=== PATIENT | female | born 1970 | race Caucasian/White ===

== ENCOUNTER 2017-12-26 06:28 | Day surgery (SDC) | payer OTHER ==
[2017-12-24 12:18] LABS: Potassium 4.4 mmol/L (3.5-5.1)
[2017-12-26] MEDS ORDERED: Ringers Lactate 1,000 ML IV ONE (06:49)
[2017-12-26] MEDS ORDERED: PROPOFOL 200 MG/20 ML VIAL IV ONE (07:03)
[2017-12-26] MEDS ORDERED: FENTANYL CITR 100 MCG/2 ML ONE (07:03)
[2017-12-26] MEDS ORDERED: MIDAZOLAM HCL 2 MG/2 ML INJ ONE (07:04)
[2017-12-26] MEDS ORDERED: LIDOCAINE 2% MPF 5 ML VIAL ONE (07:04)
[2017-12-26] MEDS ORDERED: LIDOCAINE 1% W/EPI 1:100,000 MDV 50 ML VIAL ONE (07:53)
[2017-12-26] MEDS ORDERED: NA CHLORIDE 0.9% 1,000 ML ONE (08:57)
[2017-12-26] MEDS ORDERED: IBUPROFEN 200 MG TAB PO ONE (09:39)
[2017-12-26] MEDS ORDERED: IBUPROFEN 400 MG TAB ONE (09:39)
--- NOTE | 2017-12-26 12:42 | OP ---
Date of Procedure: 12/26/2017 Surgeon: Ursula Gibson MD Marine Service Operator: None. Preoperative Diagnoses: Heavy menstrual bleeding, dysmenorrhea, possible intrauterine mass or a poss ible polyp or myoma. Postoperative Diagnoses: Dysmenorrhea, menorrhagia, and endometrial polyps. Procedures Performed: Hysteroscopy, dilation and curettage, polypectomy using Symphion resection dev ice. Anesthesia: General with LMA. Specimens: Polyps and endometrial curettings. Condition: The patient is stable. Ebl: Minimal. Findings: Polyps on the right wall of the uterus. Endometrium thickened. No myoma was seen. Description Of Procedure: After informed consent was verified, patient was taken back to the OR, luciano sirisha in a supine fashion on the operating table. After MAC was given, she was placed in a dorsal lith otomy position using Rodrick stirrups. Pelvic exam performed, uterus anteflexed, very anteflexed. No adnexal masses. Speculum placed to expose the cervix. Anterior lip grasped with 2 Allis clamps. Ce rvix dilated with a hemostat at the external os, 2 Allis clamps were readjusted to single-tooth tenac ulum on the anterior lip of the cervix. Then while I was able to visualize the cervical canal well, the cervix was dilated to about 14-Bulgarian. Then a diagnostic SlimLine hysteroscope was placed withou t any problems into the uterine cavity. Polyps visualized as described above. On the right wall, re st of the endometrial cavity appeared to be unremarkable. Tubal ostia were visualized and normal. T he scope was removed. Symphion device was then attempted to be used. However, there were problems w ith the attachment of the light source, so technically this was not possible, so I went ahead and use d the operative scope for the operating channel for the hysteroscope. Then, using normal saline for distention medium I went in, the base of the polyp was cut with the help of polypectomy scissors thro ugh this. Then, this was retrieved. The scope was removed. Endometrial curettings were performed c onsidering we were still not able to fix the Symphion device towards the end of this. However, there was not a lot of endometrium obtained, so plan to go on and use the resector. So once the Symphion light attachment was figured out, tip of the device, set the pressure at 80 mmHg and the MAP was abou t 81 mm. I went ahead and scoped the cavity after suctioning the clots and the tissue that was remai elena in there. This was aspirated into the aspiration and then using the cutter, the rest of the tis felice inside the cavity was retrieved and the posterior wall and the right lateral wall were resected i n order to get a better sample. Thorough irrigation and suction were done. There was good hemostasi s. After all the instruments were removed, instrument, needle, and sponge counts were done and were correct at the end of the case. The patient tolerated the procedure well. EBL was a 50 cc. She issac l follow up with me in 1 week for review of pathology results. No antibiotics were given to this pat ient. LISA/IOANA Voice ID: [id number] Report ID: [id number]
== END 2017-12-26 09:52 | disposition home or self-care (01) ==
LOC: OR 06:28
PROVIDERS: ATTEND Obstetrics & Gynecology
PROC: 0UDB7ZX Extraction of Endometrium, Via Natural or Artificial Opening, Diagnostic (ICD-10-PCS; 2017-12-26)
PROC: 0UB98ZX Excision of Uterus, Via Natural or Artificial Opening Endoscopic, Diagnostic (ICD-10-PCS; principal; 2017-12-26 07:30)
DX: N92.1 Excessive and frequent menstruation with irregular cycle (principal); N84.0 Polyp of corpus uteri; N94.5 Secondary dysmenorrhea; Z83.3 Family history of diabetes mellitus
CPT/HCPCS: 36415; 80048; 81025; 88305; J2250; J3010; J7030

== ENCOUNTER 2018-03-14 08:56 | Day surgery (SDC) | payer OTHER ==
[2018-03-11 10:31] LABS: Urine Appearance CLEAR; Urine Bilirubin NEGATIVE (NEG); Urine Blood NEGATIVE (NEG); Urine Color YELLOW; Urine Glucose NEGATIVE (NEG); Urine Protein NEGATIVE (NEG); Urine Specific Gravity >=1.030 (1.005-1.030); Urine Urobilinogen 0.2 mg/dL (0.2-1.0)
[2018-03-11 10:41] LABS: Urine Microscopic Reflex ORDER UMIC
[2018-03-11 10:56] LABS: Absolute Lymphocytes (CBC) 3.1 K/uL (0.7-4.9); Absolute Monocytes 0.5 K/uL (0.1-1.3); Absolute Neutrophil 4.2 K/uL (1.8-8.0); Eosinophils % 2.3 % (0-4.4); Lymphocytes % 38.4 % (15.3-44.8); MPV 8.8 fL (7.6-11.3); Monocytes % 6.7 % (3.3-12.3); RBC Red Blood Cell Count 4.68 M/uL (3.86-4.86)
[2018-03-11 11:06] LABS: Urine Bacteria <20 /HPF (<20); Urine RBC <5 /HPF (NONE SEEN)
[2018-03-11 11:07] LABS: Urine Culture Reflex Order NOT NEEDED; Urine Mucus 2+ /HPF (NONE SEEN)
[2018-03-11 11:18] LABS: Blood Morphology Comment NOT SEEN (NOT SEEN); Platelet Estimate ADEQ; Urine White Blood Cell Casts OK
[2018-03-14] MEDS ORDERED: Ringers Lactate 1,000 ML IV ONE ×2 (09:18→12:43)
[2018-03-14] MEDS ORDERED: SCOPOLAMINE HYDROBROMIDE PATCH TD ONE (09:25)
[2018-03-14] MEDS ORDERED: NA CHLORIDE 0.9% 1,000 ML ONE (11:00)
[2018-03-14] MEDS ORDERED: DEXAMETHASONE 10 MG/ML VIAL ONE (11:05)
[2018-03-14] MEDS ORDERED: PROPOFOL 200 MG/20 ML VIAL IV ONE (11:05)
[2018-03-14] MEDS ORDERED: LIDOCAINE 2% MPF 5 ML VIAL ONE (11:05)
[2018-03-14] MEDS ORDERED: FENTANYL CITR 250 MCG/5 ML ONE (11:05)
[2018-03-14] MEDS ORDERED: ROCURONIUM 50 MG/5 ML VIAL IV ONE (11:05)
[2018-03-14] MEDS ORDERED: MIDAZOLAM HCL 2 MG/2 ML INJ ONE (11:05)
[2018-03-14] MEDS ORDERED: ONDANSETRON 4 MG/2 ML VIAL ONE (11:08)
[2018-03-14] MEDS ORDERED: VASOPRESSIN 20 UNIT/ML VIAL ONE (11:31)
[2018-03-14] MEDS ORDERED: NA CHLORIDE 0.9% 50 ML ONE (11:32)
[2018-03-14] MEDS: CEFAZOLIN/SWI 2gm 2 GM/20 ML SYR ONE ×2 (11:33→11:40)
[2018-03-14] MEDS ORDERED: KETOROLAC 30 MG/ML INJ ONE (13:27)
[2018-03-14] MEDS ORDERED: NEOSTIGMINE 1 MG/ML -5 ML SYRINGE ONE (13:30)
[2018-03-14] MEDS ORDERED: GLYCOPYRROLATE 0.2 MG/ML SYR ONE (13:30)
--- NOTE | 2018-03-14 22:30 | OP ---
Date of Procedure: 03/14/2018 Surgeon: Ursula Gibson MD Brusher Warp: Mar Rausch. Preoperative Diagnoses: Menorrhagia with irregular cycles, dysmenorrhea. Postoperative Diagnoses: Menorrhagia with irregular cycles, dysmenorrhea, and leiomyomata. Procedures Performed: 1.Diagnostic hysteroscopy, attempted HTA that failed due to technical reasons, and uterine contracti on and cramping. NovaSure ablation was performed without any problems. 2.Diagnostic hysteroscopy, bilateral salpingectomy, and myomectomy x3. Anesthesia: General endotracheal. Specimens: Bilateral tubes and myomata x3. Estimated Blood Loss: Minimal. Findings: Fibroids present, one in the anterior wall and another one in the posterior wall, which ap pears to be intramural with a subserosal extension. Both of these fibroids were left in place and we re less than 3 cm. The other fibroids that were removed, one was a 2.5 cm fibroid in the subserosal area, left anterior wall and 2 other small fundal leiomyomata were removed. Unable to remove the lar seven leiomyomata due to the ablation that was done in conjunction. Endometriosis was seen. Uterine cavity had a small extension of the fibroid in the posterior wall. Indications: The patient is a 47-year-old, presented with heavy bleeding, so she was evaluated with a transvaginal ultrasound, which showed less than 3 cm leiomyoma anteriorly, which was largest and ot her smaller one. She had endometrial sampling with endometrial curettage and this showed endometrial polyps. No atypia or malignancy. We discussed all the different options given the fact the patient has so much pain and had no other control method in place, decided to proceed with ablation an d diagnostic laparoscopy with bilateral salpingectomy, and if endometriosis was found, then I would r emove it. If myomectomy was possible then I could perform that. Description Of Procedure: After informed consent was verified, patient was brought to the OR. She w as placed in supine fashion on the operating table. After general anesthesia was given, she was give n 2 g of Ancef. Pelvic exam performed. Abdomen, vulva, vagina, and perineum were prepped and draped in a sterile fashion. Helms was placed to drain the bladder. Anterior lip of the cervix was expose d and grasped with 2 Allis clamps using the HTA sheath after dilating the cervical canal to 16-Chinese . Attempt was made to start the hysteroscopy; however, at this point it was realized that the lens d id not have the knob on it that would allow it to click into the sheath of the HTA adapter, so on att empting to locate another set that had a lens that would fit to the HTA adapter, no other available s at was present at the time. The only one that was available was from the past case and had to be lori rilized. So at this time, I do not have access to a scope to complete this procedure as planned firs t before the laparoscopy. So, since the patient was under anesthesia and had to continue with her pr ocedure, a diagnostic VCare was introduced into the uterus without any problems, fixed in place. Fol ey was attached to a drainage bag. After insertion, this area was draped. A 1 cm infraumbilical incision was made with a scalpel. Open laparoscopy technique was used. Fascia incised and tagged, peritoneum entered bluntly. S retractors used to place the trocar, which was th e Yessenia. Then this was fixed in place. A 5 mm suprapubic and left lower quadrant ports were placed under direct vision. After inspection of the pelvic cavity, no evidence of any endometriosis. The appendix appeared to be normal. Upper abdominal surface was completely unremarkable. Both tubes wer e then inspected and no evidence of any pathology. The plan was to remove the tubes to prevent posta blation tubal ligation syndrome as well as give permanent sterilization in place due to the fact that we were doing an ablation on this patient. Once this was decided, inspected the fibroids and they w ere in the locations as discussed in the findings. So, plan was to remove all the subserosal fibroid s that were visible. I also plan to remove the fibroids from the anterior and posterior fishman; howev er, since ablation was already not done. If myomectomy was performed, there was a chance that the re moval of these would effect the potential to be able to perform the ablation. I did not proceed with the myomectomy of the anterior and posterior fibroids, but both of them were less than 3 cm. After the right tube was removed starting from the fimbriated end through the mesosalpinx to the medi al tube and this was placed in the anterior cul-de-sac, then the small myomata were removed with the larger one was left in the anterior cul-de-sac. The tube on the left side was buried under the adhes ions of the colon on the left, which is sigmoid. The adhesions of the sigmoid were taken down below the level of the natural attachment of the sigmoid colon all the way down to the level of the beginni ng of the tube. The tube was then freed up and removed. There were adhesions of the right tube to t he lateral abdominal wall and so salpingolysis had to be performed in order for me to release the tub e, so both right and left tubes were cauterized and cut, leaving a stump so that the ablation would n ot allow it to open. Kept the scope in the patient and went back down, placed the speculum, took the VCare out. There wer e a lot of clots that would not dislodge, so these had to be irrigated out with the help of a SlimLin e hysteroscope with normal saline as distention medium and once this was all done, then HTA was reatt empted, but there was not an optimal cavity distention and so I had to stop the HTA and change control specialist t o the radiofrequency NovaSure ablation. Once this was done, the cavity was sounded to 8.5 cm. Cervi x sounded directly with the camera to 4 cm. The cavity length was set at 4.5 cm. The cavity width w as 4.1 cm at 101 ríos of power. The ablation cycle was started without any problems. After passing the cavity integrity test 1 minute and 24 seconds. Once this was completed, thorough irrigation and suction were performed. There was global optimal endometrial ablation. The scope was then removed, irrigated out the cavity. Then, the Helms was removed as well and all the instruments removed. The n went up top and after changing my gown and gloves, removed the specimens that were tied together wi th the help of a 0 Vicryl suture, placed them in an EndoCatch bag through the umbilical port and thes e were pulled out after the trocars were removed under direct vision. There was excellent hemostasis at all the operated sides. After the trocars were removed and the specimen bag was pulled out, gas desufflated. The fascia at the umbilicus closed with 2-0 Vicryl qyarhl-ya-auixo stitches and 4-0 Mon ocryl simple sutures through the skin incisions. Instrument, needle, and sponge counts were correct at the end of the case. Patient tolerated the procedure well. She will follow up with me in 1 week. LISA/IOANA Voice ID: [id number] Report ID: [id number]
== END 2018-03-14 14:51 | disposition home or self-care (01) ==
LOC: OR 08:56
PROVIDERS: ATTEND Obstetrics & Gynecology
PROC: 0U5B8ZZ Destruction of Endometrium, Via Natural or Artificial Opening Endoscopic (ICD-10-PCS; 2018-03-14)
PROC: 0UT74ZZ Resection of Bilateral Fallopian Tubes, Percutaneous Endoscopic Approach (ICD-10-PCS; principal; 2018-03-14 10:00)
DX: D28.2 Benign neoplasm of uterine tubes and ligaments (principal); D25.1 Intramural leiomyoma of uterus; D25.2 Subserosal leiomyoma of uterus; N92.1 Excessive and frequent menstruation with irregular cycle; N94.5 Secondary dysmenorrhea
CPT/HCPCS: 36415; 81003; 81015; 81025; 85025; 86850; 86870; 86900; 86901; 88302; 88305; J0690; J1100; J2250; J2405; J2704; J2710; J3010; J7030